=== PATIENT | male | born 1950 | race Caucasian/White ===

== ENCOUNTER 2016-08-28 12:35 | Day surgery (SDC) | payer BC ==
[~2016-08-28 12:35] MED LIST: Buffered Lidocaine 1% SYRIN* 3 ML/SYR SYRINGE INTRADERM ONE; Bupivacaine 0.25% W/EPI* 50 ML VIAL ONE; Famotidine TAB* 20 MG PO ONE; Sodium Citrate/Citric Acid* 15 ML UDC PO ONE
[2016-08-28] MEDS ORDERED: Sodium Citrate/Citric Acid* 15 ML UDC ONE (12:40)
[2016-08-28] MEDS ORDERED: Famotidine IV* 10 MG/ML 2 ML (20 mg) ONE (12:40)
[2016-08-28] MEDS ORDERED: ceFAZolin 2 GM PREMIX(*) 2 GM/50 ML BAG IVPB ONE (12:40)
[2016-08-28] MEDS ORDERED: Famotidine TAB* 20 MG ONE (12:42)
[2016-08-28] MEDS ORDERED: Bupivacaine 0.5% W/EPI SDV* 30 ML VIAL ONE (16:46)
[2016-08-28] MEDS ORDERED: fentaNYL* 50 MCG/ML 2 ML VIAL (100 MCG VIAL) ONE ×2 (17:01→19:12)
[2016-08-28] MEDS ORDERED: Lidocaine 2% PF * 5 ML VIAL ONE (17:02)
[2016-08-28] MEDS ORDERED: Succinylcholine* 20 MG/ML 10 ML VIAL ONE (17:02)
[2016-08-28] MEDS ORDERED: Propofol* 10 MG/ML 20 ML BTL IV PUSH ONE (17:02)
[2016-08-28] MEDS ORDERED: DiMENhydriNATE IV* 50 MG/ML VIAL IV PUSH PRN (17:36)
[2016-08-28] MEDS ORDERED: oxyCODONE/Acetamin 5/325 MG* TAB PO PRN ×2 (17:36→18:18)
[2016-08-28] MEDS ORDERED: fentaNYL* 50 MCG/ML 2 ML VIAL (100 MCG VIAL) IV PRN (17:36)
[2016-08-28] MEDS ORDERED: Ondansetron INJ* 2 MG/ML VIAL IV PRN (17:36)
[2016-08-28] MEDS ORDERED: oxyCODONE/Acetamin 5/325 MG* TAB ONE (19:12)
[2016-08-28 19:44] VITALS: BP 132/70
[2016-08-28] MEDS ORDERED: Ondansetron INJ* 2 MG/ML VIAL ONE (19:45)
--- NOTE | 2016-08-29 12:46 | OP ---
DATE OF OPERATION: 08/28/16 - [facility] DATE OF : 54 SURGEON: Dany Valdez MD [employer] OPERATOR: TODD Christianson ANESTHESIOLOGIST: Claudy Thurman MD ANESTHESIA: General endotracheal. PRE-OP DIAGNOSIS: Right inguinal hernia. POST-OP DIAGNOSIS: Right inguinal hernia. OPERATIVE PROCEDURE: Laparoscopic preperitoneal repair of right inguinal hernia with mesh. ESTIMATED BLOOD LOSS: Minimal. IV FLUIDS: Crystalloids. SPECIMEN: None. DRAINS: None. COMPLICATIONS: None. COUNTS: Instrument, needle, and sponge counts were correct. DESCRIPTION OF PROCEDURE: The patient was brought to the operating room and placed on the table supine. Sequential compression devices were placed on both lower extremities and general anesthesia was administered. His abdomen was prepped and draped in the usual sterile fashion. A time-out was performed. He did have a Mendoza catheter placed subsequent to this. The initial incision was a curvilinear infraumbilical incision and using cautery , the subcutaneous tissues were divided and the anterior rectus fascia was identified and incised transversely to the right side of midline. The underlying rectus muscles were retracted laterally and a preperitoneal balloon dissector was placed down to the pubic symphysis, and under direct visualization , the balloon dissector was insufflated. The balloon dissector was then removed and replaced with a 12-mm blunt port and the carbon dioxide was insufflated to a pressure of 10 mmHg. Under direct visualization, two 5-mm trocars were placed in the midline. Dissection was begun at the midline and proceeded laterally to the right side identifying and preserving the inferior epigastric vessels. The dissection proceeded laterally to the anterior superior iliac spine. The indirect inguinal hernia sac was identified. Cord structures were freed from it. The sac was fully reduced. A Bard 3DMax large size patch was used for the repair. The patch was positioned in the preperitoneal space to cover the direct, indirect, and femoral spaces, and it was secured at the pubic tubercle and Jason's with CapSure tacks. The mesh was held in position as the preperitoneal space was desufflated ensuring that the mesh lay in good position. Subsequently, the ports were removed and the infraumbilical wound was closed with 0 Polysorb in interrupted fashion to approximate the fascia. The skin was closed with 4-0 Monocryl in a subcuticular fashion. Steri-Strips were applied. The patient tolerated the procedure well, was extubated, and transferred to the recovery room in stable condition. CC: Kisha Angela MD* [id number]/[facility] #: [id number]
== END 2016-08-28 19:58 | disposition home or self-care (01) ==
LOC: OR 12:35
PROVIDERS: ATTEND Surgery
DX: K40.90 Unilateral inguinal hernia, without obstruction or gangrene, not specified as recurrent (principal); E11.8 Type 2 diabetes mellitus with unspecified complications; Z79.84 Long term (current) use of oral hypoglycemic drugs; I10 Essential (primary) hypertension; E78.00 Pure hypercholesterolemia, unspecified; N40.0 Benign prostatic hyperplasia without lower urinary tract symptoms
CPT/HCPCS: A9270-GY; C1781; J0330; J0690; J2405; J2704; J3010